=== PATIENT | male | born 1935 | race Two or more races ===

== ENCOUNTER 2017-06-09 01:30 | Inpatient (IN) | payer OTHER, MEDICAID ==
[~2017-06-09] VITALS: Ht 157.5 cm; Wt 61.3 kg
[2017-06-09 02:12] LABS: PLATELET COUNT 220 x10^3mcL (130-400); RED CELL DISTRIBUTION WIDTH 12.8 % (11.5-14.5)
[2017-06-09 02:14] LABS: CALCIUM 8.6 mg/dL (8.5-10.1); CARBON DIOXIDE 22.5 mmol/L (21-32); CHLORIDE SERUM 106 mmol/L (98-107); GLUCOSE SERUM 103 mg/dL (74-106); POTASSIUM SERUM 3.7 mmol/L (3.5-5.1); SODIUM SERUM 138 mmol/L (136-145)
[2017-06-09 02:20] LABS: ALBUMIN 3.6 g/dL (3.4-5.0); ALKALINE PHOSPHATASE 106 U/L (46-116); ALT/SGPT 20 U/L (16-63); AST/SGOT 17 U/L (15-37); BILIRUBIN TOTAL 0.59 mg/dL (0.20-1.00); HDL CHOLESTEROL 47 mg/dL (40-60); LIPASE 205 IU/L (73-393); TOTAL PROTEIN, SERUM 7.5 g/dL (6.4-8.2); TRIGLYCERIDES 68 mg/dL (<150)
[2017-06-09 02:23] LABS: CHOLESTEROL 121 mg/dL (<200); CHOLESTEROL/HDL RATIO 2.6
[2017-06-09 02:32] LABS: microscopic required? NO
[2017-06-09 02:45] LABS: UA SPECIFIC GRAVITY 1.025 (1.005-1.035); urine erythrocyte NEGATIVE (NEGATIVE)
[2017-06-09 02:59] LABS: BAND NEUTROPHIL 0 % (0-10); BASOPHIL 0 % (0-2); MONOCYTE 13 % (0-7); SEGMENTED NEUTROPHILS 64 % (37-75)
[2017-06-09 03:00] LABS: PLATELET MORPHOLOGY PLATELETS NORMAL; rbc morphology (normal/abnorm) NORMAL (NORMAL)
[2017-06-09 03:13] LABS: FREE T4 1.07 ng/dL (0.76-1.46); FREE THYROXINE INDEX 2.6 ug/dL (1.4-4.5); T4(THYROXINE) 7.8 ug/dL (4.7-13.3)
[2017-06-09] MEDS ORDERED: CATAPRES0.1 MG PO (04:16)
[2017-06-09] MEDS ORDERED: STOOL SOFTENER100 MG PO (04:17)
[2017-06-09 05:11] LABS: MAGNESIUM 2.2 mg/dL (1.8-2.4); PHOSPHOROUS 3.3 mg/dL (2.5-4.9)
[2017-06-09 05:43] VITALS: BP 123/78
[2017-06-09 06:41] LABS: AMPHETAMINE QUAL UR NONE DETECTED (NEG <=1000)
[2017-06-09 08:09] VITALS: BP 124/66
[2017-06-09 14:29] VITALS: BP 120/64
[2017-06-09 18:00] VITALS: BP 132/75
[2017-06-09 20:58] VITALS: BP 121/77
[2017-06-10 06:09] LABS: BASOPHIL % 0.2 % (0-2); PLATELET COUNT 212 x10^3mcL (130-400); RED CELL DISTRIBUTION WIDTH 13.6 % (11.5-14.5)
[2017-06-10 06:11] LABS: CALCIUM 8.9 mg/dL (8.5-10.1); CARBON DIOXIDE 27.9 mmol/L (21-32); CHLORIDE SERUM 106 mmol/L (98-107); CREATININE SERUM 1.1 mg/dL (0.7-1.3); GLUCOSE SERUM 99 mg/dL (74-106); POTASSIUM SERUM 4.2 mmol/L (3.5-5.1); SODIUM SERUM 139 mmol/L (136-145)
[2017-06-10 18:02] VITALS: BP 122/80
[2017-06-10 20:49] VITALS: BP 132/79
[2017-06-11 05:16] VITALS: BP 110/66
[2017-06-11 06:22] LABS: CALCIUM 8.4 mg/dL (8.5-10.1); CARBON DIOXIDE 28.1 mmol/L (21-32); CHLORIDE SERUM 105 mmol/L (98-107); GLUCOSE SERUM 93 mg/dL (74-106); POTASSIUM SERUM 3.4 mmol/L (3.5-5.1); SODIUM SERUM 141 mmol/L (136-145)
[2017-06-11] MEDS ORDERED: QUETIAPINE FUMA25 M1 PO (09:55)
[2017-06-11 10:09] VITALS: BP 125/85
[2017-06-11 12:36] VITALS: BP 125/85
[2017-06-11 13:21] VITALS: BP 113/85
[2017-06-11 17:02] VITALS: BP 1308/89
[2017-06-12 06:09] VITALS: BP 115/86
[2017-06-12 10:30] VITALS: BP 121/82
[2017-06-12 12:31] VITALS: BP 121/82
== END 2017-06-12 13:13 | disposition home or self-care (01) | DRG 56 ==
LOC: ED 01:30 → DU 04:04 → MU 04:04 → DU 05:26 → MU 06-11 20:38
PROVIDERS: Specialist; ADMIT Family Medicine
DX: G30.9 Alzheimer's disease, unspecified (principal); G93.41 Metabolic encephalopathy; F02.80 Dementia in other diseases classified elsewhere, unspecified severity, without behavioral disturbance, psychotic disturbance, mood disturbance, and anxiety; K21.9 Gastro-esophageal reflux disease without esophagitis; R73.03 Prediabetes; I10 Essential (primary) hypertension; Z68.24 Body mass index [BMI] 24.0-24.9, adult; Z87.891 Personal history of nicotine dependence
CPT/HCPCS: 82962; 83880; 84439; J1630; J7030; Q0092; Q0163